=== PATIENT | female | born 1960 | race Caucasian/White ===

== ENCOUNTER 2019-07-16 12:39 | Emergency (ER) | payer BC, OTHER ==
[~2019-07-16] VITALS: Ht 160 cm; Wt 89.0 kg
[2019-07-16 12:49] VITALS: BP 152/83
[2019-07-16] MEDS ORDERED: silver sulfadiazine cream 50gm TP ONE (14:10)
[2019-07-16] MEDS ORDERED: CEPH500C5 PO (14:13)
== END 2019-07-16 14:46 | disposition home or self-care (01) ==
LOC: ER 12:39
DX: L98.9 Disorder of the skin and subcutaneous tissue, unspecified (principal); B08.4 Enteroviral vesicular stomatitis with exanthem
CPT/HCPCS: 99283